=== PATIENT | female | born 1960 | race Caucasian/White ===

== ENCOUNTER 2017-06-27 07:32 | Emergency (ER) | payer BC ==
[~2017-06-27] VITALS: Ht 167.6 cm; Wt 81.6 kg
[~2017-06-27 07:32] MED LIST: HYDR-2997 PO
[2017-06-27] MEDS ORDERED: fentaNYL INJECTION 100 MCG/2 ML AMP ONE (07:50)
[2017-06-27 07:58] LABS: BASOPHILS # (AUTO) 0.1 10^3/uL (0.0-0.1); BASOPHILS % (AUTO) 1 % (0-10); EOSINOPHILS # (AUTO) 0.4 10^3/uL (0.0-0.3); EOSINOPHILS % (AUTO) 5 % (0-10); HEMATOCRIT 43 % (35-52); HEMOGLOBIN 14.9 G/DL (11.5-16.0); LYMPHOCYTES # (AUTO) 2.7 X 10^3 (1.0-4.0); LYMPHOCYTES % (AUTO) 35 % (12-44); MEAN CORPUSCULAR HEMOGLOBIN 30 PG (25-34); MEAN CORPUSCULAR HGB CONC 35 G/DL (32-36); MEAN CORPUSCULAR VOLUME 87 FL (80-99); MEAN PLATELET VOLUME 11.2 FL (7.4-10.4); MONOCYTES # (AUTO) 0.5 X 10^3 (0.0-1.0); MONOCYTES % (AUTO) 6 % (0-12); NEUTROPHILS # (AUTO) 4.1 X 10^3 (1.8-7.8); NEUTROPHILS % (AUTO) 53 % (42-75); PLATELET COUNT 273 10^3/uL (130-400); RED BLOOD COUNT 4.94 10^6/uL (4.35-5.85); RED CELL DISTRIBUTION WIDTH 13.2 % (10.0-14.5); WHITE BLOOD COUNT 7.7 10^3/uL (4.3-11.0)
[2017-06-27] MEDS ORDERED: fentaNYL INJECTION 100 MCG/2 ML AMP IVP ONE ×2 (08:00→09:00)
[2017-06-27 08:13] LABS: ALANINE AMINOTRANSFERASE 25 U/L (0-55); ALBUMIN 4.1 GM/DL (3.2-4.5); ALKALINE PHOSPHATASE 92 U/L (40-136); BILIRUBIN,TOTAL 0.8 MG/DL (0.1-1.0); BUN/CREATININE RATIO 10; CALCIUM 9.3 MG/DL (8.5-10.1); CARBON DIOXIDE 19 MMOL/L (21-32); CHLORIDE 108 MMOL/L (98-107); CREATININE SERUM 0.86 MG/DL (0.60-1.30); GFR ESTIMATED > 60; GLUCOSE 106 MG/DL (70-105); POTASSIUM 3.7 MMOL/L (3.6-5.0); SODIUM 140 MMOL/L (135-145); TOTAL PROTEIN 7.3 GM/DL (6.4-8.2)
--- NOTE | 2017-06-27 08:23 | Diagnostic Imaging Report ---
EXAMINATION: Right ankle, 3 views. COMPARISON: None. HISTORY: 57-year-old female, injury. Right ankle pain and swelling. FINDINGS: There is an obliquely oriented displaced fracture of the distal fibula extending upwards from the level of the tibial plafond. The distal fracture fragment is displaced laterally by 5.8 mm. There is a transversely oriented fracture extending through the base of the medial malleolus with displacement of the distal fracture fragment laterally by 11 mm. There is a vertically oriented displaced fracture of the posterior malleolus. There is no identified large tibiotalar joint effusion. There is loss of normal alignment of the ankle mortise. There is widening of the distance between the medial talar dome and medial aspect of the tibial plafond. There is no radiographically apparent osteochondral lesion of the talar dome. There is a tiny calcaneal heel spur. There is very mild degenerative type enthesopathy at the insertion of the Achilles tendon. There is soft tissue swelling adjacent to the medial and lateral malleoli. IMPRESSION: 1. Displaced fracture extending obliquely upwards from the level of the tibial plafond of the distal fibula. 2. Transversely oriented displaced fracture extending through the base of the medial malleolus. 3. Displaced fracture of the posterior malleolus. 4. Abnormal alignment of the ankle mortise. Dictated by: Dictated on workstation # [id number]
[2017-06-27] MEDS ORDERED: NS IV 1000 ML 1,000 ML IV SCH (08:52)
[2017-06-27] MEDS ORDERED: oxyCODONE/APAP 5/325MG (PERCOCET 5) TABLET PO ONE (09:00)
[2017-06-27] MEDS ORDERED: OXYC-197 PO (09:31)
--- NOTE | 2017-06-27 09:31 | ED Fall/Injury ---
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 PT HAS DEFORMITY NOTED IN R ANKLE. RATES PAIN 01/01 Source: patient Exam Limitations: no limitations History of Present Illness Date Seen by Provider: Jun 27, 2017 Time Seen by Provider: 07:40 Initial Comments This 57-year-old woman presents to the emergency room with right ankle injury. She rolled her ankle while walking down the stairs and now has deformity. She denies any other injury. She did not strike her head and denies head or neck pain. She had no prodrome prior to the fall and states she simply rolled her ankle. Allergies and Home Medications Allergies Coded Allergies: No Known Drug Allergies (Unverified , 08/02/12) Home Medications Oxycodone HCl/Acetaminophen 1 Each Tablet, 1-2 EACH PO Q4H PRN for PAIN- MODERATE TO SEVERE Prescribed by: SOLOMON RODRIGUEZ on 06/27/17 0970 Patient Home Medication List Home Medication List Reviewed: Yes Constitutional: no symptoms reported Eyes: No Symptoms Reported Ears, Nose, Mouth, Throat: no symptoms reported Respiratory: no symptoms reported Cardiovascular: no symptoms reported Gastrointestinal: no symptoms reported Genitourinary: no symptoms reported : No Musculoskeletal: see HPI Skin: no symptoms reported Psychiatric/Neurological: No Symptoms Reported Past Rtlbfly-Osurbz-Rlqtli Hx Patient Social History Recent Foreign Travel: No Contact w/Someone Who Travel: No Recent Infectious Disease Expo: No Surgeries History of Surgeries: Yes Respiratory History of Respiratory Disorde: No Cardiovascular History of Cardiac Disorders: No Neurological History of Neurological Disord: No Reproductive System : No Hx Reproductive Disorders: No Genitourinary History of Genitourinary Disor: No Gastrointestinal History of Gastrointestinal Di: No Musculoskeletal History of Musculoskeletal Dis: No Endocrine History of Endocrine Disorders: No HEENT History of HEENT Disorders: No Cancer History of Cancer: No Psychosocial History of Psychiatric Problem: No Physical Exam Vital Signs Vital Signs - First Documented 06/27/17 07:35 Temp 97.9 Pulse 83 Resp 18 B/P (MAP) 180/90 (120) Pulse Ox 99 Capillary Refill : Less Than 3 Seconds General Appearance: WD/WN, mild distress HEENT: PERRL/EOMI, normal ENT inspection Neck: normal inspection Cardiovascular: regular rate, rhythm, no edema, no murmur Respiratory: lungs clear, normal breath sounds, no respiratory distress, no accessory muscle use Extremities: pelvis stable, swelling, other (Right ankle pain, swelling, and ecchymosis with slightly displaced posterior foot. 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, no motor/sensory deficits, alert, normal mood/affect, oriented x 3 Skin: normal color, warm/dry Rankin Coma Score Best Eye Response: (4) Open Spontaneously Best Verbal Response: (5) Oriented Best Motor Response: (6) Obeys Commands Rankin Total: 15 Progress/Results/Core Measures Results/Orders Lab Results Laboratory Tests Test 06/27/17 07:44 Range/Units White Blood Count 7.7 4.3-11.0 10^3/uL Red Blood Count 4.94 4.35-5.85 10^6/uL Hemoglobin 14.9 11.5-16.0 G/DL Hematocrit 43 35-52 % Mean Corpuscular Volume 87 80-99 FL Mean Corpuscular Hemoglobin 30 25-34 PG Mean Corpuscular Hemoglobin Concent 35 32-36 G/DL Red Cell Distribution Width 13.2 10.0-14.5 % Platelet Count 273 130-400 10^3/uL Mean Platelet Volume 11.2 H 7.4-10.4 FL Neutrophils (%) (Auto) 53 42-75 % Lymphocytes (%) (Auto) 35 12-44 % Monocytes (%) (Auto) 6 0-12 % Eosinophils (%) (Auto) 5 0-10 % Basophils (%) (Auto) 1 0-10 % Neutrophils # (Auto) 4.1 1.8-7.8 X 10^3 Lymphocytes # (Auto) 2.7 1.0-4.0 X 10^3 Monocytes # (Auto) 0.5 0.0-1.0 X 10^3 Eosinophils # (Auto) 0.4 H 0.0-0.3 10^3/uL Basophils # (Auto) 0.1 0.0-0.1 10^3/uL Sodium Level 140 135-145 MMOL/L Potassium Level 3.7 3.6-5.0 MMOL/L Chloride Level 108 H 98-107 MMOL/L Carbon Dioxide Level 19 L 21-32 MMOL/L Anion Gap 13 5-14 MMOL/L Blood Urea Nitrogen 9 7-18 MG/DL Creatinine 0.86 0.60-1.30 MG/DL Estimat Glomerular Filtration Rate > 60 BUN/Creatinine Ratio 10 Glucose Level 106 H 70-105 MG/DL Calcium Level 9.3 8.5-10.1 MG/DL Total Bilirubin 0.8 0.1-1.0 MG/DL Aspartate Amino Transf (AST/SGOT) 23 5-34 U/L Alanine Aminotransferase (ALT/SGPT) 25 0-55 U/L Alkaline Phosphatase 92 40-136 U/L Total Protein 7.3 6.4-8.2 GM/DL Albumin 4.1 3.2-4.5 GM/DL My Orders Orders - SOLOMON BROWN MD Ankle, Right, 3 Views (06/27/17 07:46) Saline Lock/Iv-Start (06/27/17 07:46) Fentanyl Injection (Sublimaze Injection (06/27/17 08:00) Cbc With Automated Diff (06/27/17 07:51) Comprehensive Metabolic Panel (06/27/17 07:51) Fentanyl Injection (Sublimaze Injection (06/27/17 07:50) Oxycodone/Apap 5/325mg Tablet (Percocet (06/27/17 09:00) Fentanyl Injection (Sublimaze Injection (06/27/17 09:00) Ns Iv 1000 Ml (Sodium Chloride 0.9%) (06/27/17 08:52) Medications Given in ED Current Medications Medications Dose Ordered Sig/Jeff Route Start Time Stop Time Status Last Admin Dose Admin Fentanyl Citrate 50 mcg ONCE ONCE IVP 06/27/17 09:00 06/27/17 09:01 DC 06/27/17 09:03 50 MCG Fentanyl Citrate 100 mcg ONCE ONCE IVP 06/27/17 08:00 06/27/17 08:01 DC 06/27/17 07:50 100 MCG Oxycodone/ Acetaminophen 2 tab ONCE ONCE PO 06/27/17 09:00 06/27/17 09:01 DC 06/27/17 09:03 2 TAB Vital Signs/I&O Vital Sign - Last 12Hours 06/27/17 06/27/17 07:35 10:03 Temp 97.9 Pulse 83 83 Resp 18 18 B/P (MAP) 180/90 (120) 164/80 (120) Pulse Ox 99 99 Blood Pressure Mean: 120 Progress Note : Progress Note Patient was given fentanyl and oxycodone for pain. She was kept nothing by mouth in preparation for consultation with Dr. Chery in the office and possible procedures. She was hydrated with a liter of IV fluids. Case was reviewed with Dr. Chery. He asked the patient be placed in a splint or boot until he can assess her. The boot fit nicely and helped reduce the disfigurement. Pedal pulses remain palpable. Diagnostic Imaging Diagonstic Imaging: Xray Plain Films/CT/US/NM/MRI: ankle Comments X-ray viewed by me and report reviewed. See report below: NAME: [facility]YAD [facility] REC#: [id number] PT STATUS: DEP ER : [id number] PHYSICIAN: SOLOMON BROWN MD ADMIT DATE: 06/27/17/ER Signed Date of Exam: 06/27/17 ANKLE, RIGHT, 3 VIEWS EXAMINATION: Right ankle, 3 views. COMPARISON: None. HISTORY: 57-year-old female, injury. Right ankle pain and swelling. FINDINGS: There is an obliquely oriented displaced fracture of the distal fibula extending upwards from the level of the tibial plafond. The distal fracture fragment is displaced laterally by 5.8 mm. There is a transversely oriented fracture extending through the base of the medial malleolus with displacement of the distal fracture fragment laterally by 11 mm. There is a vertically oriented displaced fracture of the posterior malleolus. There is no identified large tibiotalar joint effusion. There is loss of normal alignment of the ankle mortise. There is widening of the distance between the medial talar dome and medial aspect of the tibial plafond. There is no radiographically apparent osteochondral lesion of the talar dome. There is a tiny calcaneal heel spur. There is very mild degenerative type enthesopathy at the insertion of the Achilles tendon. There is soft tissue swelling adjacent to the medial and lateral malleoli. IMPRESSION: 1. Displaced fracture extending obliquely upwards from the level of the tibial plafond of the distal fibula. 2. Transversely oriented displaced fracture extending through the base of the medial malleolus. 3. Displaced fracture of the posterior malleolus. 4. Abnormal alignment of the ankle mortise. Dictated by: Dictated on workstation # [id number] Dict: 06/27/17 08 Trans: 06/27/17 105 Interpreted by: LYNN PATEL MD Electronically signed by: LYNN PATEL MD 06/27/17 1057 Departure Impression Impression: Primary Impression: Fracture of distal end of tibia Qualified Codes: S82.301A - Unspecified fracture of lower end of right tibia, initial encounter for closed fracture Additional Impressions: Fracture of distal fibula Qualified Codes: S82.831A - Other fracture of upper and lower end of right fibula, initial encounter for closed fracture Fall on same level Qualified Codes: W18.30XA - Fall on same level, unspecified, initial encounter Disposition: 01 HOME, SELF-CARE Condition: Improved Departure-Patient Inst. Decision time for Depature: 08:30 Referrals: REICK OLSON DO (PCP) Primary Care Physician BASHIR MILNER (Family) Primary Care Physician KEYONNA CHERY MD Patient Instructions: Ankle Fracture (DC) Add. Discharge Instructions: Do not eat or drink anything until discussing further with Dr. Chery. Presented to his office at 1:00 p.m. today for further evaluation. You may ice in 20 minute intervals. If the boot becomes too tight because of swelling, loosen the Velcro straps but do not remove the boot completely. Keep the right foot elevated to the level of the heart as much as you are able. Use crutches to ambulate and do not bear weight on your right foot. All discharge instructions reviewed with patient and/or family. Voiced understanding. Scripts Oxycodone HCl/Acetaminophen (Percocet 5-325 mg Tablet) 1 Each Tablet 1-2 EACH PO Q4H Y for PAIN-MODERATE TO SEVERE, #30 TAB Prov: SOLOMON BROWN MD 06/27/17 Copy Copies To 1: KEYONNA CHERY MD, JOSHUA T MD Jun 27, 2017 09:31
[2017-06-27 10:03] VITALS: BP 164/80
== END 2017-06-27 10:03 | disposition home or self-care (01) ==
LOC: EDUNIT# 07:32 → ER 07:33
DX: S82.841A Displaced bimalleolar fracture of right lower leg, initial encounter for closed fracture (principal); R40.2142 Coma scale, eyes open, spontaneous, at arrival to emergency department; R40.2252 Coma scale, best verbal response, oriented, at arrival to emergency department; R40.2362 Coma scale, best motor response, obeys commands, at arrival to emergency department; X50.0XXA Overexertion from strenuous movement or load, initial encounter
CPT/HCPCS: 36415; 73610; 80053; 85025; 96361; 96374; 96376

== ENCOUNTER → 2018-02-12 | Outpatient (CLI) | payer BC ==
[~2018-02-12] MED LIST changes: +OXYC1TAB87 PO
--- NOTE | 2018-02-13 13:35 | Diagnostic Imaging Report ---
INDICATION: Routine screening. COMPARISON: 03/08/2013 and 09/30/2011. TECHNIQUE: 2D and 3D bilateral screening mammography was performed with CAD. FINDINGS: Both breasts are heterogeneously dense, limiting the sensitivity of mammography. Circumscribed nodules in the right breast appear stable and consistent with benign etiology. No new mass or malignant appearing microcalcifications are seen. The axillae are unremarkable. IMPRESSION: No mammographic features suspicious for malignancy are identified. ACR BI-RADS Category 2: Benign findings. Result letter will be mailed to the patient. Note: At least 10% of breast cancer is not imaged by mammography. Dictated by: Dictated on workstation # [id number]
== END ==
LOC: RAD 08:44
PROVIDERS: ATTEND Family Medicine
DX: Z12.31 Encounter for screening mammogram for malignant neoplasm of breast (principal)
CPT/HCPCS: 77067

== ENCOUNTER → 2023-02-03 | Outpatient (CLI) | payer BC ==
--- NOTE | 2023-02-03 11:21 | Diagnostic Imaging Report ---
3-D bilateral screening mammogram with CAD. The current study was also evaluated with a Computer Aided Detection (CAD) system. This study was compared to the prior exams of 02/12/2018. At this time there are no current complaints. The current study was also evaluated with a Computer Aided Detection (CAD) system. FINDINGS: There are scattered fibroglandular densities in both breasts which could obscure a lesion. Overall, there does not appear to have been any significant change when compared to the prior exam. No primary or secondary sign of malignancy is noted. IMPRESSION: 1. There is no radiographic evidence for malignancy. 2. The patient should have her annual bilateral screening mammogram on schedule in January 2024. ACR BI-RADS Category 1: Negative. Result letter will be mailed to the patient. Note: At least 10% of breast cancer is not imaged by mammography. Dictated by: Dictated on workstation # [id number]
== END ==
LOC: RAD 09:27
PROVIDERS: ATTEND Family Medicine
DX: Z12.31 Encounter for screening mammogram for malignant neoplasm of breast (principal)
CPT/HCPCS: 77063; 77067